=== PATIENT | male | born 1965 | race American Indian/Alaskan Native ===

== ENCOUNTER 2021-07-08 09:51 | Emergency (ER) | payer SELFPAY ==
[2021-07-08 10:14] VITALS: BP 158/109
--- NOTE | 2021-07-08 11:03 | Emergency Department Report ---
ED General Adult HPI - General Chief complaint: Extremity Problem,Nontraumatic Stated complaint: RT LEG NUMBNESS Time Seen by Provider: 07/08/21 10:23 Source: patient Mode of arrival: Ambulatory Limitations: No Limitations - History of Present Illness Initial comments: 56-year-old -[place] male patient presents with complaints of left lateral thigh numbness, tingling, and burning sensation x1 week. Patient states his symptoms are intermittent and only occur with lying down and sitting. Symptoms disappear when walking. He states he did have a recent car ride from [place]. He denies any swelling in the area, skin changes, or fever/chills/sweats. No joint pains or difficulty moving his leg. He does admit to chronic low back pain, but denies any new injuries, loss of bladder/bowel control, history of cancer, or weakness in his leg. - Related Data Previous Rx's Medication Instructions Recorded Last Taken Type Meloxicam [Mobic] 15 mg PO QDAY PRN #10 tablet 07/08/21 Unknown Rx Allergies Allergy/AdvReac Type Severity Reaction Status Date / Time No Known Allergies Allergy Verified 07/08/21 10:10 ED Review of Systems ROS: Stated complaint: RT LEG NUMBNESS Other details as noted in HPI Constitutional: denies: diaphoresis, fever, malaise Gastrointestinal: denies: abdominal pain Genitourinary: denies: urgency, dysuria, hematuria Neurological: paresthesias. denies: abnormal gait ED Past Medical Hx - Past Medical History Previous Medical History?: Yes Hx Hypertension: Yes - Surgical History Past Surgical History?: No - Medications Home Medications: Home Medications Medication Instructions Recorded Confirmed Last Taken Type Meloxicam [Mobic] 15 mg PO QDAY PRN #10 tablet 07/08/21 Unknown Rx ED Physical Exam - General Limitations: No Limitations General appearance: alert, in no apparent distress - Head Head exam: Present: atraumatic, normocephalic - Eye Eye exam: Absent: scleral icterus - Respiratory Respiratory exam: Absent: respiratory distress - Cardiovascular Cardiovascular Exam: Present: regular rate - Extremities Exam Extremities exam: Present: full ROM - Expanded Lower Extremity Exam Left Hip exam: Present: normal inspection. Absent: swelling, erythema Upper Leg exam: Present: normal inspection Knee exam: Present: normal inspection. Absent: swelling, erythema Lower Leg exam: Present: normal inspection, full ROM Ankle exam: Present: normal inspection Neuro vascular tendon exam: Present: no vascular compromise - Back Exam Back exam: Present: full ROM - Expanded Back Exam Expanded Back exam: Absent: saddle anesthesia Back exam: Sciatic Notch Tenderness: Left - Neurological Exam Neurological exam: Present: alert, oriented X3, normal gait - Psychiatric Psychiatric exam: Present: normal affect, normal mood - Skin Skin exam: Present: warm, dry, intact, normal color. Absent: rash, pallor ED Course Vital Signs 07/08/21 10:11 Temperature 98.4 F Pulse Rate 78 Respiratory 20 Rate Blood Pressure 158/109 O2 Sat by Pulse 100 Oximetry ED Medical Decision Making - Radiology Data Radiology results: report reviewed VL venous duplex LE LT INDICATION / CLINICAL INFORMATION: thigh pain. TECHNIQUE: Duplex doppler imaging was performed using venous compression and other maneuvers. COMPARISON: None available. FINDINGS: No venous thrombosis is identified within the visualized extremity vasculature. ADDITIONAL FINDINGS: None. IMPRESSION: 1. No sonographic evidence for DVT in the visualized bilateral lower extremity vasculature. - Medical Decision Making 56-year-old -[place] male patient presents with complaints of left lateral thigh numbness, tingling, and burning sensation x1 week. Patient states his symptoms are intermittent and only occur with lying down and sitting. Symptoms disappear when walking. He states he did have a recent car ride from [place]. He denies any swelling in the area, skin changes, or fever/chills/sweats. No joint pains or difficulty moving his leg. He does admit to chronic low back pain, but denies any new injuries, loss of bladder/bowel control, history of cancer, or weakness in his leg. Ultrasound is negative for any DVT. Suspect sciatica versus meralgia paresthetica. Recommend patient follows up with his PCP for further evaluation. He is well-appearing, his vitals within normal limits, he is stable for discharge home. Strict return precautions were discussed in detail with patient who verbalizes understanding. Critical care attestation.: If time is entered above; I have spent that time in minutes in the direct care of this critically ill patient, excluding procedure time. ED Disposition Clinical Impression: Meralgia paresthetica, Paresthesia Disposition: 01 HOME / SELF CARE / HOMELESS Is pt being admited?: No Condition: Stable Instructions: Neuropathic Pain Prescriptions: Meloxicam [Mobic] 15 mg PO QDAY PRN #10 tablet PRN Reason: pain Referrals: PRIMARY CARE, [Primary Care Provider] - 3-5 Days Forms: Work/School Release Form(ED)
--- NOTE | 2021-07-08 11:55 | Vascular Lab Report ---
VL venous duplex LE LT INDICATION / CLINICAL INFORMATION: thigh pain. TECHNIQUE: Duplex doppler imaging was performed using venous compression and other maneuvers. COMPARISON: None available. FINDINGS: No venous thrombosis is identified within the visualized extremity vasculature. ADDITIONAL FINDINGS: None. IMPRESSION: 1. No sonographic evidence for DVT in the visualized bilateral lower extremity vasculature. Signer Name: Elton Bedoya MD Signed: 07/08/2021 11:51 AM Workstation Name: [id number]
== END 2021-07-08 12:33 | disposition home or self-care (01) ==
LOC: ED 09:51
DX: G57.12 Meralgia paresthetica, left lower limb (principal); I10 Essential (primary) hypertension; R20.2 Paresthesia of skin
CPT/HCPCS: 99283